=== PATIENT | female | born 1965 | race Caucasian/White ===

== ENCOUNTER 2017-06-19 14:08 | Observation (INO) ==
[2017-06-19] MEDS ORDERED: Sodium Chloride 0.9% 1,000 ML PRIMARY IV ONE (14:21)
[2017-06-19] MEDS ORDERED: ONDANSETRON 4 MG/2 ML VIAL IVP ONE (14:21)
--- NOTE | 2017-06-19 14:28 | PDOC ---
Chest Pain HPI - General Chief Complaint: Chest Pain Stated Complaint: chest pain Date Seen by Provider: 06/19/17 Time Seen by Provider: 14:23 Source: Patient, EMS Exam Limitations: POSITIVE: No limitations Treatment Prior to Arrival: REPORTS: Nitroglycerin, Aspirin Nurse's Notes Reviewed & Considered: Yes EMS Report Reviewed & Considered: Verbal - History of Present Illness Initial Comments: This is a pleasant 51-year-old female complaining of chest pain. 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 She did have an episode of vomiting. No diarrhea. She denies any fever chills or sweats, she has a post nitroglycerin headache. She denies any cough, no hematuria or dysuria, no rashes, no myalgias or arthralgias. Patient is a smoker, and her mother and father had myocardial infarctions. Her pain improved after 3 nitroglycerin from a 9 to a 6/10. She then received morphine sulfate IV and her pain further improved to a 4/10. She continues to have shortness of breath. Body Location Affected: REPORTS: Upper Extremity (L), Chest Timing: REPORTS: Abrupt Duration: 1 hour Severity: Moderate Context: REPORTS: Activity Quality: REPORTS: "Pain", Sharpness Radiation: REPORTS: Jaw (L), Shoulder (L), Arm (L) Associated Symptoms: REPORTS: Nausea, Vomiting, Shortness of Breath Modifying Factors: improves with: Nitroglycerin Similar Symptoms Previously: No Recently seen/treated/hospitalized: No Any Prior Injuries Related to Current Complaint?: No - Patient Home Medications Home Medications: Home Medications Ibuprofen 400 mg PO Q6H PRN 06/19/17 - Patient Allergies Allergies/Adverse Reactions: Allergies Allergy/AdvReac Type Severity Reaction Status Date / Time No Known Allergies Allergy Verified 06/19/17 14:30 ROS - Limitations ROS Limitations: No Limitations Constitution: REPORTS: Denies Symptoms Cardiovascular: REPORTS: Chest Pain Respiratory: REPORTS: Shortness Of Breath Neurological: REPORTS: Denies Neuro Symptoms Gastrointestinal: REPORTS: Nausea, Vomitting Endocrine: REPORTS: Denies Symptoms Musculoskeletal: REPORTS: Denies MS Symptoms Genitourinary: REPORTS: Denies Symptoms Eyes: REPORTS: Denies Symptoms ENT: REPORTS: Denies Symptoms Skin: REPORTS: Denies Skin Symptoms Lympathic: REPORTS: Denies Lympathic Symptoms Immunologic: POSITIVE: Denies Symptoms Psychiatric: POSITIVE: Denies Psych Symptoms Chest Pain PE - General Appearance General Appearance: REPORTS: Alert, Cooperative, No Evidence of Trauma, Mild Distress - HEENT HEENT: POSITIVE: Head Inspection Nml, Eyes Inspection Nml, Ears Inspection Nml, Nose Inspection Nml, Oral/Dental Inspect. Nml, Pharynx Inspect. Nml, PERRL, EOMI - Neck Neck: REPORTS: Normal Inspection, No Carotid Bruit - Respiratory Respiratory: REPORTS: No Respiratory Distress, Breath Sounds Normal, Chest Non- Tender - Cardiovascular Cardiovascular: REPORTS: Regular Rate and Rhythm, Heart Sounds Normal, Strong Pulses, No Murmur, No Gallop, No Friction Rub, No JVD Peripheral Pulses: Radial (R): 4+ - Abdomen Abdomen: Soft: (All Quadrants), Normal Bowel Sounds: (All Quadrants), Denies Tenderness: (All Quadrants), No Splenomegaly: (All Quadrants), No Hepatomegaly: (All Quadrants), No Guarding: (All Quadrants), No Rebound: (All Quadrants), No Palpable Pulse: (All Quadrants), No Palpabale Mass: (All Quadrants), No Distention: (All Quadrants), No Rigidity: (All Quadrants) - Skin Skin: REPORTS: Intact, Normal For Race, Warm, Dry, No Rash - Extremities Extremity: Non-Tender: (All Extremities), Normal ROM: (All Extremities), Normal Inspection: (All Extremities), Pelvis Stable: (All Extremities) - Neurological / Psychological Neurological: POSITIVE: 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, 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, 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 As Tested, Motor Normal, Sensation Normal Reflexes: Patellar (R): 4+, Patellar (L): 4+, Radial (R): 4+, Radial (L): 4+ Chest Pain Progress - Results Reviewed by me Xrays/CTs/US Reviewed by me: Yes Discussed with Radiologist: Yes Lab Results Reviewed: Yes Lab Results:: Laboratory Results 06/19/17 06/19/17 Range/Units 14:30 16:37 WBC 7.03 (4.8-10.8) 10^3/uL RBC 5.00 (4.20-5.40) 10^6/uL Hgb 14.1 (12.0-16.0) g/dL Hct 41.0 (37.0-47.0) % MCV 82.0 (81-99) FL MCH 28.2 (27-31) PG MCHC 34.4 (33-37) g/dL RDW Std Deviation 40.0 (39-50) fL RDW Coeff of Gregory 13.7 (11.5-14.5) % Plt Count 326 (140-350) 10*3/uL MPV 9.5 (7.4-12.2) FL Immature Gran % (Auto) 0.3 (0-5) % Neut % (Auto) 47.3 L (50-80) % Lymph % (Auto) 40.0 (10-50) % [place] % (Auto) 9.0 (5-15) % Eos % (Auto) 3.0 (0-8) % Baso % (Auto) 0.4 (0-1) % Immature Gran # (Auto) 0.02 10*3/UL Neut # (Auto) 3.33 10*3/UL Lymph # (Auto) 2.81 10*3/uL [place] # (Auto) 0.63 (0.3-0.8) 10*3/UL Eos # (Auto) 0.21 10*3/UL Baso # (Auto) 0.03 10*3/UL WBC Morphology Comment Normal morphology (NORM) Plt Morphology Comment Normal morphology (NORM) RBC Morph Comment Normal morphology (NORM) PT 9.7 (9.7-11.4) secs INR 0.92 (0.00-5.90) N/A D-Dimer 0.24 (0.00-0.59) mg/L Sodium 139 (135-145) meq/L Potassium 3.8 (3.8-5.2) meq/L Chloride 105 (98-112) meq/L Carbon Dioxide 20 L (23-33) meq/L Anion Gap 14 (5-20) BUN 31 H (7-22) mg/dL Creatinine 0.7 (0.50-1.20) mg/dL Estimated GFR > 60 (>60 ml/min/1.73m(2)) BUN/Creatinine Ratio 44.28 H (6-20) Glucose 87 (78-110) mg/dL Calculated Osmolality 293.0 H (267-292) mOsm/kg Calcium 10.0 (8.7-10.7) mg/dL Magnesium 2.1 (1.6-2.4) mg/dL Total Bilirubin 0.8 (0.3-1.2) mg/dL AST 37 (8-39) IU/L ALT 47 (9-52) IU/L Alkaline Phosphatase 94 (38-126) IU/L CK-MB (CK-2) 1.23 (0.00-5.00) NG/ML Troponin I < 0.012 < 0.012 (< 0.040) ng/mL C-Reactive Protein 1.8 H (0.0-0.9) mg/dL Total Protein 8.1 H (6.1-8.0) g/dL Albumin 4.8 (3.5-4.8) g/dL Globulin 3.3 (2.50-4.10) g/dL Albumin/Globulin Ratio 1.40 (1.3-2.0) mg/g EKG Interpreted/Reviewed By Me:: Yes (NSR) EKG Interpretation:: POSITIVE: Normal Sinus Rhythm - Patient's Progress Pain Medication Addressed: POSITIVE: Yes Re-Examine Time: 17:11 Status: POSITIVE: Improved MDM / ED Course: Patient was evaluated, an IV started, blood drawn and sent to the lab for studies, radiographic and EKG studies were obtained. Findings: CBC is unremarkable. Troponin is negative. CK-MB is normal. D- dimer is normal. INR is normal. Comprehensive metabolic panel shows BUN elevated with a normal creatinine of 0.7. Chest x-ray shows no acute cardiopulmonary decompensation. EKG per my interpretation shows a normal sinus rhythm. MRI of her brain shows no acute intracranial abnormalities. Assessment: Chest pain with normal troponin, normal CK-MB, normal d-dimer. Positive risk factors for cardiac disease. Plan: Admission for rule out myocardial infarction. Quality Measure Initiative: CP/AMI: POSITIVE: EKG, ASA Quality Measure Initiative: CAP: POSITIVE: CXR or CT - Consult Consult (If Yes, Name of Consulting MD & Time Called): Yes (Dr. Granado [phone]) Consulting MD will see pt:: POSITIVE: [facility] Admit Counseled: POSITIVE: Patient, RE: Lab Results, RE: Radiology Results, RE: DX, RE : Need for F/U Patient Care Time - Estimated PCT Patient Care Time (In Minutes): 60 Vital Signs - VS Reviewed Vital Signs Reviewed: Yes Discharge Clinical Impression: Chest pain Discharge Disposition: Admit to Inpatient Condition: Stable Patient Instructions Given at Discharge: Chest Pain (ED) Date Decision to Admit to Inpatient: 06/19/17 Time Decision to Admit to Inpatient: 17:19
[2017-06-19 14:37] LABS: BASOPHILS # (AUTO) 0.03 10*3/UL; BASOPHILS % (AUTO) 0.4 % (0-1); EOSINOPHILS # (AUTO) 0.21 10*3/UL; Hemoglobin [HGB] 14.1 g/dL (12.0-16.0); LYMPHOCYTES # (AUTO) 2.81 10*3/uL; MEAN CORPUSCULAR HEMOGLOBIN 28.2 PG (27-31); MEAN CORPUSCULAR HGB CONC 34.4 g/dL (33-37); MEAN PLATELET VOLUME 9.5 FL (7.4-12.2); MONOCYTES # (AUTO) 0.63 10*3/UL (0.3-0.8); NEUTROPHILS # (AUTO) 3.33 10*3/UL; NEUTROPHILS % (AUTO) 47.3 % (50-80)
[2017-06-19 14:43] LABS: PLATELET MORPHOLOGY COMMENT NORMAL MORPHOLOGY (NORM); RBC MORPHOLOGY COMMENT NORMAL MORPHOLOGY (NORM); WBC MORPHOLOGY COMMENT NORMAL MORPHOLOGY (NORM)
--- NOTE | 2017-06-19 14:44 | DI ---
AP CHEST X-RAY, 06/19/2017 2:21 PM : Clinical History: Chest pain. Previous Exam: None at this facility. There is no acute soft tissue or bony abnormality. Heart size is normal. Lungs are clear. Mediastinal structures are normal. There are no pulmonary nodules. Reading: Normal chest x-ray.
[2017-06-19 14:52] LABS: BLOOD UREA NITROGEN 31 mg/dL (7-22); BUN/CREATININE RATIO 44.28 (6-20); MAGNESIUM 2.1 mg/dL (1.6-2.4); SERUM ALBUMIN 4.8 g/dL (3.5-4.8)
[2017-06-19] MEDS ORDERED: NITROGLYCERIN 0.4 MG SL TAB (BOTTLE OF 3) SL ONE (14:57)
[2017-06-19] MEDS ORDERED: MORPHINE SULFATE 2 MG/1 ML IVP ONE (15:14)
--- NOTE | 2017-06-19 16:19 | DI ---
MRI BRAIN SCAN WITHOUT IV CONTRAST, 06/19/2017 2:21 PM: Clinical History: Left hand weakness and numbness. Previous Exam: None at this facility. Sequences: Sagittal T1; Axial ROSE T2 and FLAIR. Axial diffusion weighted images with ADC mapping were also performed. The 4th, 3rd, and lateral ventricles are of normal size, shape, position, and contour for this patien t's age. There are no focal areas of abnormally increased or decreased signal intensity. Specifically , there is no abnormality in the motor and sensory homunculus regions corresponding to the left arm a nd hand. Diffusion weighted imaging with ADC mapping is normal. There are no extracerebral mantels or shift of the midline structures. The paranasal sinuses are normal. Readin. There is no evidence of an acute hemorrhagic or bland infarct. 2. There is no atrophy present. 3. Diffusion weighted imaging with ADC mapping is normal.
--- NOTE | 2017-06-19 16:22 | EKG ---
[address] [place] [address] Measurements Intervals [place] Rate: 78 P: 66 AR: 139 QRS: 11 QRSD: 93 T: 40 QT: 385 QTc: 419 Interpretive Statements SINUS RHYTHM POSSIBLE RIGHT VENTRICULAR CONDUCTION DELAY [RSR (QR) IN V1/V2] No prior study available for comparison and no acute ST-T changes to suggest acute injury. Electronically Signed On 06-22-17 08:52:33 MDT by Vaughn Alexandre MD [id number]
--- NOTE | 2017-06-19 18:26 | PDOC ---
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 She did vomit once. The pain was bad she described it as stabbing. The medics were called and they gave her a total of 3 nitroglycerin the pain went down from 9 to 6 she also got some IV morphine and the pain now is down to 2 she said. She had testing done in the ER and they were negative. That included an MRI and lab test and EKG. She was admitted for further management. Currently her pain is minimal she said she complained mainly from headaches at the back of her head. Past Medical History Medical History: 1. Colon cancer status post resection about 8 years ago done in [place]. She was suppose o have chemotherapy after surgery but couldn't afford it. A month ago she had colonoscopy and she had some polyps that were removed. Surgical History: Status post colon resection for colon cancer Pertinent Family History: Both mother and father had myocardial infarctions. Mother had also breast cancer and father had lung cancer. Past Social History: She smokes she said the pack would last for a week, she's been smoking her for about 22 years. Occasionally drinks. Sometimes smokes marijuana. She is to live in [place] she moved about a year ago to [place]. 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 Tobacco Use: Current Some Day Smoker Substance Use Type: Marijuana Alcohol Use: Rarely Medication / Allergies Home Medications: Home Medications Medication Instructions Recorded Confirmed Type Ibuprofen 400 mg PO Q6H PRN 06/19/17 06/19/17 History Allergies/Adverse Reactions: Allergies Allergy/AdvReac Type Severity Reaction Status Date / Time Iodinated Contrast- Oral and Allergy Anaphylaxis Verified 06/19/17 18:59 IV Dye Penicillins Allergy RASH Verified 06/19/17 18:59 Review of Systems - Review of Systems All Systems: Reviewed & No Additional Complaints Except as Stated Exam - Vitals Vital Signs: Vital Signs Temperature 96.6 F Temperature Source Temporal Artery Scan Pulse Rate 70 Respiratory Rate 12 Blood Pressure 113/63 Pulse Ox 94 - General General Appearance: POSITIVE: No Acute Distress, Cooperative, Thin - Head Head Exam: POSITIVE: Normal Inspection - Eye Eye Exam: POSITIVE: Normal Appearance - ENT ENT Exam: POSITIVE: Normal Exam - Neck Neck Exam: POSITIVE: Normal Inspection - Respiratory Respiratory Exam: POSITIVE: Clear to Auscultation - Bilaterally - Cardiovascular Cardiovascular Exam: POSITIVE: RRR - GI/Abdominal GI/Abdominal Exam: POSITIVE: Normal Bowel Sounds, Non Tender, Non Distended, Soft - Rectal Rectal Exam: POSITIVE: Deferred - External Exam: POSITIVE: Deferred - Extremities Extremities Exam: POSITIVE: Normal Inspection - Back Back Exam: POSITIVE: Normal Inspection - Neurological Neurological Exam: POSITIVE: Alert, Oriented x 3, CN II-XII Intact, Speech Intact / Clear, Moves All Extremities Equally - Psychiatric Psychiatric Exam: POSITIVE: Normal Affect - Integumentary Integumentary Exam: POSITIVE: Normal Color Results - Labs CBC and BMP: 06/19/17 14:30 06/19/17 14:30 - EKG Data -: EKG Interpreted by Me EKG Shows Normal: Sinus Rhythm - EKG Data Additional EKG Details: Suggestive of Incomplete right bundle branch block - Imaging Status: Report Reviewed by Me (MRI brain there is no dense acute hemorrhagic or bladder infarct, there is no atrophy, diffusion weighted imaging with ADC mapping is normal. Chest x-ray is normal) Assessment and Plan - Patient Problems (1) Chest pain Current Visit: Yes Status: Acute Comment: I think we'll rule her out and try to do a stress test in the morning. Unfortunately we can't do the nuclear part as the no hemodialysis technician is available over the weekend. I did explain that to her we ordered the regular stress test. The ER physician did explain that to her earlier and she didn't want to go elsewhere and she is wanted to stay here and have her care here. this could be anginal versus non anginal.
--- NOTE | 2017-06-19 18:27 | EKG ---
[address] [place] [address] Measurements Intervals [place] Rate: 62 P: 60 NE: 143 QRS: -4 QRSD: 98 T: 26 QT: 432 QTc: 438 Interpretive Statements SINUS RHYTHM POSSIBLE RIGHT VENTRICULAR CONDUCTION DELAY [RSR (QR) IN V1/V2] BORDERLINE POSSIBLE LATERAL MYOCARDIAL INFARCTION [30 ms Q WAVE IN I/aVL/V5/V6], PROBABLY OLD OR normal from septal q-waves in I, aVL Compared to ECG 06/19/2017 14:10:01 Borderline possible Myocardial infarct finding now present (but no evolving acute ST changes favors septal q- waves over acute injury) Electronically Signed On 06-22-17 08:57:17 MDT by Vaughn Alexandre MD [id number]
[2017-06-19] MEDS ORDERED: LIDOCAINE W/ SODIUM BICARB 0.5 ML SYR SUBD PRN (18:52)
[2017-06-19] MEDS ORDERED: ONDANSETRON 4 MG/2 ML VIAL IVP PRN (18:52)
[2017-06-19] MEDS: Sodium Chloride 0.9% 1,000 ML PRIMARY IV SCH (19:43)
[2017-06-19] MEDS: ACETAMINOPHEN 325 MG TABLET PO PRN (19:45)
[2017-06-20] MEDS: ACETAMINOPHEN 325 MG TABLET PO PRN (04:38)
[2017-06-20 05:21] LABS: CHOL/HDL RATIO 3.7 RATIO (0-4.0)
[2017-06-20] MEDS: NITROGLYCERIN 0.4 MG SL TAB (BOTTLE OF 3) SL PRN ×3 (06:09→06:27)
[2017-06-20] MEDS ORDERED: CALCIUM CARBONATE 500 MG (TUMS) CHEWABLE TABLET PO ONE (06:40)
[2017-06-20] MEDS ORDERED: MORPHINE SULFATE 2 MG/1 ML IVP ONE (07:02)
[2017-06-20] MEDS ORDERED: MORPHINE SULFATE 2 MG/1 ML ONE (07:10)
[2017-06-20] MEDS: Sodium Chloride 0.9% 1,000 ML PRIMARY IV SCH (08:09)
[2017-06-20 08:10] VITALS: RESP 18
[2017-06-20] MEDS ORDERED: ASPIRIN 325 MG EC TABLET PO SCH (09:00)
--- NOTE | 2017-06-20 11:31 | STRESSTEST ---
[facility] Interpretive Statements This is a very pleasant 51 YO female that presented with left shouder pain radiating to her chest . Ruled out for acute myocardial infarction. + family history, + smoker, negative for DMII, high cholesterol, HTN. Exercise stress test done today with Phuc protocol. Exercised to 95% predicted HR with double producte of 30,888 and 10.2 METS. Hypertensive response to exercise. Resting EKG NSR. Impression: negative maximal stress test with hypertensive response to exercise. Electronically Signed On 06-22-17 09:06:54 MDT by Vaughn Alexandre MD [id number]
[2017-06-20 11:38] VITALS: TEMP 98
--- NOTE | 2017-06-20 12:37 | EKG ---
[address] [place] [address] Measurements Intervals [place] Rate: 58 P: 59 SD: 148 QRS: 4 QRSD: 94 T: 31 QT: 428 QTc: 425 Interpretive Statements SINUS BRADYCARDIA LOW QRS VOLTAGE IN PRECORDIAL LEADS [QRS DEFLECTION < 1.0 mV IN CHEST LEADS] Compared to ECG 06/19/2017 16:30:02 Low QRS voltage now present Sinus rhythm no longer present Myocardial infarct finding no longer present Electronically Signed On 06-22-17 09:06:32 MDT by Vaughn Alexandre MD [id number]
--- NOTE | 2017-06-20 14:40 | DI ---
HISTORY: Left shoulder pain for two days. Patient denies trauma. COMPARISON: None available. FINDINGS: Examination reveals no definite evidence of fracture or dislocation. IMPRESSION: 1. No acute osseous abnormalities. Clinical correlation is requested.
[2017-06-20] MEDS ORDERED: Naproxen Tab 500 MG TAB PO ONE (15:42)
--- NOTE | 2017-06-20 15:49 | DCSUMMARY ---
Hospitalization Summary Admit Date: 06/19/17 Discharge Date: 06/20/17 Primary Diagnosis:: chest pain, atypical, resolved Secondary Diagnosis:: Left shoulder pain Hospital Course: This very pleasant 51-year-old female who has family history of heart disease and smokes. She came in with chest pain that had radiated from her left shoulder. 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 She ruled out for myocardial infarction and of Phuc protocol exercise treadmill stress test was performed and it was a negative maximal exercise stress test with hypertensive response to exercise. She had greater than 10 metabolic equivalents and had a double product over 30,000. X-ray revealed no evidence of arthritis but there was some calcification possibly along the tendon. I curb sided orthopedics and and I think it would be best to trial anti-inflammatories for the next 2 weeks with orthopedic follow -up if pain persists or continues. As the patient lives in [place], I gave her the option of either following with orthopedics here, or in [place], her home town. She currently denies any chest pain, shortness breath, nausea or vomiting. Her shoulders under better control. Assessment and Plan: 1. As per discharge assessments noted 2. Disposition: Patient is discharged home. 3. Condition on discharge, stable and improved. 4. Diet: regular diet 5. Activities: resume normal activities 6. Follow-Up: 1. Primary care provider in one week 2. 7. Medications at the Time of Discharge: Home Medications Medication Instructions Recorded Confirmed Type Naproxen Sodium [Aleve] 220 mg PO Q12H #30 tab 06/20/17 Rx 8. Time, care, counseling and coordination of care for this discharge is greater than 30 minutes. Exam - Vitals Vital Signs: Vital Signs Temperature 98 F Temperature Source Temporal Artery Scan Pulse Rate [Apical] 51 Pulse Rate [Pulse Oximeter] 72 Pulse Rate [Telemetry] 64 Pulse Rate 49 Respiratory Rate 18 Blood Pressure [Right Arm] 125/80 Blood Pressure 113/63 Pulse Ox 96 Oxygen Flow Rate room air Oxygen Delivery Method Room Air Height 5 ft 8 in Weight 163 lb 6.4 oz - General General Appearance: POSITIVE: No Acute Distress, Cooperative - Head Head Exam: POSITIVE: Atraumatic - Eye Eye Exam: POSITIVE: No Scleral Icterus - ENT ENT Exam: POSITIVE: Mucous Membranes Moist - Respiratory Respiratory Exam: POSITIVE: Clear to Auscultation - Bilaterally, Breathing Non Labored, Normal to Percussion and Palpation - Cardiovascular Cardiovascular Exam: POSITIVE: RRR, No Murmur, No Clicks, No Gallops, No Rubs, No JVD - GI/Abdominal GI/Abdominal Exam: POSITIVE: Normal Bowel Sounds, Non Tender, Non Distended, Soft - Extremities Extremities Exam: POSITIVE: No Clubbing Present, No Edema Present, No Cyanosis Present - Neurological Neurological Exam: POSITIVE: Alert, Oriented x 3, No Facial Droop, Speech Intact / Clear, Moves All Extremities Equally - Psychiatric Psychiatric Exam: POSITIVE: Normal Affect, Normal Mood Data Perinent Studies: Laboratory Results 06/19/17 06/19/17 06/19/17 Range/Units 14:30 16:37 22:00 WBC 7.03 (4.8-10.8) 10^3/uL RBC 5.00 (4.20-5.40) 10^6/uL Hgb 14.1 (12.0-16.0) g/dL Hct 41.0 (37.0-47.0) % MCV 82.0 (81-99) FL MCH 28.2 (27-31) PG MCHC 34.4 (33-37) g/dL RDW Std Deviation 40.0 (39-50) fL RDW Coeff of Gregory 13.7 (11.5-14.5) % Plt Count 326 (140-350) 10*3/uL MPV 9.5 (7.4-12.2) FL Immature Gran % (Auto) 0.3 (0-5) % Neut % (Auto) 47.3 L (50-80) % Lymph % (Auto) 40.0 (10-50) % [place] % (Auto) 9.0 (5-15) % Eos % (Auto) 3.0 (0-8) % Baso % (Auto) 0.4 (0-1) % Immature Gran # (Auto) 0.02 10*3/UL Neut # (Auto) 3.33 10*3/UL Lymph # (Auto) 2.81 10*3/uL [place] # (Auto) 0.63 (0.3-0.8) 10*3/UL Eos # (Auto) 0.21 10*3/UL Baso # (Auto) 0.03 10*3/UL WBC Morphology Comment Normal morphology (NORM) Plt Morphology Comment Normal morphology (NORM) RBC Morph Comment Normal morphology (NORM) PT 9.7 (9.7-11.4) secs INR 0.92 (0.00-5.90) N/A D-Dimer 0.24 (0.00-0.59) mg/L Sodium 139 (135-145) meq/L Potassium 3.8 (3.8-5.2) meq/L Chloride 105 (98-112) meq/L Carbon Dioxide 20 L (23-33) meq/L Anion Gap 14 (5-20) BUN 31 H (7-22) mg/dL Creatinine 0.7 (0.50-1.20) mg/dL Estimated GFR > 60 (>60 ml/min/1.73m(2)) BUN/Creatinine Ratio 44.28 H (6-20) Glucose 87 (78-110) mg/dL Calculated Osmolality 293.0 H (267-292) mOsm/kg Calcium 10.0 (8.7-10.7) mg/dL Magnesium 2.1 (1.6-2.4) mg/dL Total Bilirubin 0.8 (0.3-1.2) mg/dL AST 37 (8-39) IU/L ALT 47 (9-52) IU/L Alkaline Phosphatase 94 (38-126) IU/L CK-MB (CK-2) 1.23 (0.00-5.00) NG/ML Troponin I < 0.012 < 0.012 < 0.012 (< 0.040) ng/mL C-Reactive Protein 1.8 H (0.0-0.9) mg/dL Total Protein 8.1 H (6.1-8.0) g/dL Albumin 4.8 (3.5-4.8) g/dL Globulin 3.3 (2.50-4.10) g/dL Albumin/Globulin Ratio 1.40 (1.3-2.0) mg/g Triglycerides (44-200) mg/dL Cholesterol (120-200) mg/dL LDL Cholesterol, Calc mg/dL VLDL Cholesterol (0-40) mg/dL HDL Cholesterol (40-150) mg/dL Cholesterol/HDL Ratio (0-4.0) RATIO TSH 1.36 (0.2700-4.2000) uIU/mL 06/20/17 06/20/17 Range/Units 04:32 06:47 WBC (4.8-10.8) 10^3/uL RBC (4.20-5.40) 10^6/uL Hgb (12.0-16.0) g/dL Hct (37.0-47.0) % MCV (81-99) FL MCH (27-31) PG MCHC (33-37) g/dL RDW Std Deviation (39-50) fL RDW Coeff of Gregory (11.5-14.5) % Plt Count (140-350) 10*3/uL MPV (7.4-12.2) FL Immature Gran % (Auto) (0-5) % Neut % (Auto) (50-80) % Lymph % (Auto) (10-50) % [place] % (Auto) (5-15) % Eos % (Auto) (0-8) % Baso % (Auto) (0-1) % Immature Gran # (Auto) 10*3/UL Neut # (Auto) 10*3/UL Lymph # (Auto) 10*3/uL [place] # (Auto) (0.3-0.8) 10*3/UL Eos # (Auto) 10*3/UL Baso # (Auto) 10*3/UL WBC Morphology Comment (NORM) Plt Morphology Comment (NORM) RBC Morph Comment (NORM) PT (9.7-11.4) secs INR (0.00-5.90) N/A D-Dimer (0.00-0.59) mg/L Sodium (135-145) meq/L Potassium (3.8-5.2) meq/L Chloride (98-112) meq/L Carbon Dioxide (23-33) meq/L Anion Gap (5-20) BUN (7-22) mg/dL Creatinine (0.50-1.20) mg/dL Estimated GFR (>60 ml/min/1.73m(2)) BUN/Creatinine Ratio (6-20) Glucose (78-110) mg/dL Calculated Osmolality (267-292) mOsm/kg Calcium (8.7-10.7) mg/dL Magnesium (1.6-2.4) mg/dL Total Bilirubin (0.3-1.2) mg/dL AST (8-39) IU/L ALT (9-52) IU/L Alkaline Phosphatase (38-126) IU/L CK-MB (CK-2) (0.00-5.00) NG/ML Troponin I < 0.012 < 0.012 (< 0.040) ng/mL C-Reactive Protein (0.0-0.9) mg/dL Total Protein (6.1-8.0) g/dL Albumin (3.5-4.8) g/dL Globulin (2.50-4.10) g/dL Albumin/Globulin Ratio (1.3-2.0) mg/g Triglycerides 77 (44-200) mg/dL Cholesterol 178 (120-200) mg/dL LDL Cholesterol, Calc 114.600 mg/dL VLDL Cholesterol 15 (0-40) mg/dL HDL Cholesterol 48 (40-150) mg/dL Cholesterol/HDL Ratio 3.70 (0-4.0) RATIO TSH (0.2700-4.2000) uIU/mL Patient Problems - Patient Problem List (1) Chest pain Current Visit: Yes Status: Resolved (2) Left shoulder pain Current Visit: Yes Status: Acute Qualifiers: Chronicity: acute Qualified Description: Acute pain of left shoulder Qualifier Code(s): (M25.512) Pain in left shoulder
== END 2017-06-20 16:22 | disposition home or self-care (01) ==
LOC: ER 14:08 → MED/SURG 17:23
PROVIDERS: ADMIT Internal Medicine; ATTEND Internal Medicine